=== PATIENT | male | born 1960 | race Caucasian/White ===

== ENCOUNTER 2022-05-27 08:59 | Day surgery (SDC) | payer BC ==
[2022-05-27] MEDS ORDERED: Midazolam 1 MG/ML 2 ML SDV IV ONE (09:00)
[2022-05-27] MEDS ORDERED: Sodium Chloride 0.9% 10 ML Syringe FLUSH PRN (09:30)
[2022-05-27] MEDS ORDERED: Lactated Ringers 1,000 ML IV SCH (09:30)
[2022-05-27] MEDS ORDERED: Midazolam 1 MG/ML 2 ML SDV ONE ×2 (10:40→11:28)
[2022-05-27] MEDS ORDERED: Propofol 200 MG/20 ML SDV ONE (10:40)
== END 2022-05-27 12:00 | disposition home or self-care (01) ==
LOC: KA.SDS 08:59
PROVIDERS: ATTEND Surgery
DX: R19.4 Change in bowel habit (principal); R19.7 Diarrhea, unspecified; K64.4 Residual hemorrhoidal skin tags; K64.8 Other hemorrhoids; I10 Essential (primary) hypertension; E78.5 Hyperlipidemia, unspecified; J30.9 Allergic rhinitis, unspecified; Z79.899 Other long term (current) drug therapy; Z91.018 Allergy to other foods
CPT/HCPCS: 00812; J2250; J2704; J7120